=== PATIENT | male | born 1970 | race Caucasian/White ===

== ENCOUNTER 2016-10-05 20:40 | Inpatient (IN) | payer OTHER ==
[~2016-10-05] VITALS: Ht 185.4 cm; Wt 130.2 kg
[2016-10-05 21:18] LABS: HEMATOCRIT 49.2 % (38.0-50.0); MCH 29.7 PG (29.0-34.0); MCHC 34.6 G/DL (30.0-36.0); MEAN PLAT.VOLUME 10.5 uM^3 (9.0-12.4); PLATELET COUNT 256 K/uL (156-360); RBC DIS.WIDTH-CV 12.5 % (11.8-14.6); RBC DIS.WIDTH-SD 38.7 % (39-53); RED BLOOD COUNT 5.72 M/uL (4.00-5.50); WHITE BLOOD COUNT 7.7 K/uL (4.1-10.2)
[2016-10-05 21:29] LABS: CHLORIDE 108 mEq/L (99-109); POTASSIUM 3.7 mEq/L (3.7-5.4); SODIUM 141 mEq/L (136-147)
[2016-10-05 21:30] LABS: GLUCOSE 111 mg/dL (70-99)
[2016-10-05 21:32] LABS: ANION GAP 17 MEQ/L (2-14)
[2016-10-05 21:33] LABS: SERUM ETHYL ALCOHOL 136 mg/dL
[2016-10-05 21:35] LABS: UREA NITROGEN (BUN) 12 mg/dL (9-23)
[2016-10-05 21:40] LABS: GFR ESTIMATE (CALCULATED) > 59 mL/min/
[2016-10-05 22:32] LABS: AMPHETAMINE NEGATIVE (500 ng/mL); BARBITURATES NEGATIVE (200 ng/mL); BENZODIAZEPINES NEGATIVE (150 ng/mL); COCAINE NEGATIVE (150 ng/mL); INTERNAL CONTROLS VALID? YES; METHADONE NEGATIVE (200 ng/mL); METHAMPHETAMINE NEGATIVE (500 ng/mL); OPIATES (MORPHINE) NEGATIVE (100 ng/mL); OXYCODONE NEGATIVE (100 ng/mL); PHENCYCLIDINE NEGATIVE (25 ng/mL); PROPOXYPHENE NEGATIVE (300 ng/mL); THC CANNABINOIDS NEGATIVE (50 ng/mL); TRICYCLIC ANTIDEPRESSANTS NEGATIVE (300 ng/mL)
[2016-10-06] MEDS ORDERED: GLIPIZIDE5 MG PO ×2 (00:18→00:19)
[2016-10-06] MEDS ORDERED: SIMVASTATIN40 MG PO (00:19)
[2016-10-06] MEDS ORDERED: LOSARTAN POTAS100 MG PO (00:19)
[2016-10-06] MEDS ORDERED: JARDIANCE25 MG PO (00:20)
[2016-10-06] MEDS ORDERED: JANUVIA100 MG PO (00:20)
[2016-10-06] MEDS ORDERED: METFORMIN HCL1000 MG PO (00:20)
[2016-10-06] MEDS ORDERED: ASPIR 8181 M1 PO (00:20)
[2016-10-06 03:02] VITALS: BP 123/70
[2016-10-06 07:37] VITALS: BP 129/73
== END 2016-10-06 11:58 | disposition home or self-care (01) | DRG 881 ==
LOC: EDBD 20:40 → EME 20:40 → EDOF 10-06 → 1WEST 10-06 00:26
DX: F43.21 Adjustment disorder with depressed mood (principal); R45.851 Suicidal ideations
CPT/HCPCS: 80048; 85027; 90837; 99281; 99285; G0480